=== PATIENT | female | born 1975 | race African-American/Black ===

== ENCOUNTER 2024-06-01 10:16 | Outpatient (RCR) | payer MEDICARE, SELFPAY ==
[2024-05-31 11:54] VITALS: BP 137/78
[2024-05-31] MEDS: THYROGEN 1 MG IM (12:17)
[2024-06-01 10:33] VITALS: BP 120/71
[2024-06-01] MEDS: THYROGEN 1 MG IM (10:38)
== END 2024-06-02 09:15 | disposition home or self-care (01) ==
LOC: OID 10:16
PROVIDERS: ATTENDING PHYSICIAN Internal Medicine Endocrinology, Diabetes & Metabolism; FAMILY PHYSICIAN Internal Medicine
DX: C73 Malignant neoplasm of thyroid gland (principal)
CPT/HCPCS: 96372; J3240